=== PATIENT | male | born 1980 | race Two or more races ===

== ENCOUNTER 2024-04-25 10:34 | Emergency (ER) | payer OTHER ==
[~2024-04-25] VITALS: Ht 167.6 cm; Wt 100.0 kg
[2024-04-25 10:43] VITALS: TEMP 97.8
[2024-04-25 10:58] LABS: APPEARANCE,URINE CLEAR (CLEAR); BILIRUBIN,URINE NEGATIVE (NEGATIVE); COLOR,URINE LIGHT YELLOW (YELLOW); GLUCOSE, URINE (UA) NEGATIVE (NEGATIVE); KETONES,URINE NEGATIVE (NEGATIVE); LEUKOCYTE ESTERASE ,URINE NEGATIVE (NEGATIVE); NITRATE,URINE NEGATIVE (NEGATIVE); OCCULT BLOOD,URINE TRACE (NEGATIVE); PROTEIN,URINE NEGATIVE (NEGATIVE); SPECIFIC GRAVITIY, URINE 1.014 (1.003-1.030); UROBILINOGEN,URINE <=1.0 mg/dL (<=1.0)
[2024-04-25 11:11] LABS: BACTERIA,URINE None Seen /HPF (None Seen); RBC,URINE 0-2 /HPF (0-2); WBC,URINE None Seen /HPF (0-5)
[2024-04-25] MEDS ORDERED: METH-659 PO (12:17)
[2024-04-25] MEDS ORDERED: IBUP-1492 PO (12:17)
[2024-04-25 12:30] VITALS: BP 150/90; PULSE 78; RESP 18; O2SAT 98
== END 2024-04-25 13:15 | disposition home or self-care (01) ==
LOC: EMS 10:34
DX: N20.0 Calculus of kidney (principal); Z90.49 Acquired absence of other specified parts of digestive tract
CPT/HCPCS: 81001; 99283

== ENCOUNTER 2024-08-13 07:29 | Emergency (ER) | payer OTHER ==
[~2024-08-13] VITALS: Ht 167.6 cm; Wt 86.4 kg
[~2024-08-13 07:29] MED LIST: IBUP-1492 PO; METH-659 PO
[2024-08-13 07:38] VITALS: BP 155/92; PULSE 76; RESP 18; TEMP 97.9; O2SAT 98
[2024-08-13] MEDS ORDERED: [UNRECOGNIZED DRUG - CODE] PO (07:42)
[2024-08-13 08:00] LABS: BASOPHILS % (AUTO) 0.6 % (0.0-2.0); EOSINOPHILS % (AUTO) 1.7 % (1.0-6.0); HEMATOCRIT 44.7 % (41-53); HEMOGLOBIN 15.5 g/dL (13.5-17.5); LYMPHOCYTES # (AUTO) 2.1 K/uL (1.0-4.8); LYMPHOCYTES % (AUTO) 24.9 % (22.0-44.0); MEAN CORPUSCULAR HEMOGLOBIN 30.4 pg (26.0-34.0); MEAN CORPUSCULAR HGB CONC 34.6 G/dL (31.0-37.0); MEAN CORPUSCULAR VOLUME 88 fL (80-100); MONOCYTES # (AUTO) 0.4 K/uL (0.1-1.0); MONOCYTES % (AUTO) 4.9 % (2.0-9.0); NEUTROPHILS # (AUTO) 5.7 K/uL (1.8-7.7); NEUTROPHILS % (AUTO) 67.9 % (40.0-70.0); PLATELET COUNT (AUTO) 205 K/uL (150-450); RED BLOOD CELL COUNT(AUTO) 5.08 MIL/uL (4.50-5.90); WHITE BLOOD COUNT (AUTO) 8.3 K/uL (4.5-11.0)
[2024-08-13 08:12] LABS: APPEARANCE,URINE CLEAR (CLEAR); BILIRUBIN,URINE NEGATIVE (NEGATIVE); COLOR,URINE COLORLESS (YELLOW); GLUCOSE, URINE (UA) NEGATIVE (NEGATIVE); KETONES,URINE NEGATIVE (NEGATIVE); LEUKOCYTE ESTERASE ,URINE NEGATIVE (NEGATIVE); NITRATE,URINE NEGATIVE (NEGATIVE); OCCULT BLOOD,URINE NEGATIVE (NEGATIVE); PH,URINE 6.5 (5.0-8.0); PROTEIN,URINE NEGATIVE (NEGATIVE); SPECIFIC GRAVITIY, URINE 1.012 (1.003-1.030); UROBILINOGEN,URINE <=1.0 mg/dL (<=1.0)
[2024-08-13 08:13] LABS: ANION GAP 12 mmol/L (8-16); CALCIUM, TOTAL 8.2 mg/dL (8.8-10.5); CARBON DIOXIDE 27 mmol/L (22-29); CHLORIDE 102 mmol/L (98-107); CREATININE 0.98 mg/dL (0.60-1.30); GLOMERULAR FILTR. RATE CALC > 60 mL/min (>60); GLUCOSE,RANDOM 162 mg/dL (70-110); POTASSIUM 3.2 mmol/L (3.5-5.1); SODIUM SERUM 141 mmol/L (136-145); UREA NITROGEN, BLOOD 13 mg/dL (7-18)
[2024-08-13] MEDS: IBUPROFEN 600 MG TABLET PO ONE (08:44)
[2024-08-13] MEDS ORDERED: IBUP-1492 PO (09:27)
[2024-08-13] MEDS ORDERED: METH-659 PO (09:27)
== END 2024-08-13 09:59 | disposition home or self-care (01) ==
LOC: EMS 07:31
DX: R10.9 Unspecified abdominal pain (principal); R30.9 Painful micturition, unspecified; Z87.442 Personal history of urinary calculi; Z90.49 Acquired absence of other specified parts of digestive tract; Z79.899 Other long term (current) drug therapy
CPT/HCPCS: 80048; 81003; 85025; 99283